=== PATIENT | male | born 1965 | race Hispanic/Latino ===

== ENCOUNTER 2018-08-19 07:45 | Outpatient (CLI) | payer BC ==
--- NOTE | 2018-08-19 09:42 | ULT ---
HEPATIC ULTRASOUND WITH DUPLEX EVALUATION: Date: 08/19/18 INDICATION: History of right upper quadrant pain and cirrhosis. TECHNIQUE: Rogel scale, color Doppler, and spectral Doppler images were obtained of the liver and spleen. FINDINGS: The liver has an irregular nodular contour and heterogeneous echotexture consistent with patient's hi story of cirrhosis. No focal hepatic lesion is identified. The right hepatic lobe measures 12.7 cm in length. The spleen is enlarged, measuring 15.6 cm in length. No free fluid is evident. Visualized aspects of the gallbladder were normal appearing. No sonographic Hernandez's sign is reported . Common bile duct measures 4.2 mm. There is appropriate hepatopetal flow seen within the portal vein, splenic vein, and hepatic artery. Appropriate flow is seen within the hepatic vein and splenic artery. Visualized aspects of the aorta and IVC are within normal limits. IMPRESSION: 1. Cirrhosis with findings of mild portal hypertension and splenomegaly. 2. Appropriate hepatopetal flow is seen within the hepatic vasculature. POS: H
== END 2018-08-19 07:46 | disposition home or self-care (01) ==
LOC: BICULT 07:45
PROVIDERS: ATTEND Internal Medicine
DX: K74.60 Unspecified cirrhosis of liver (principal); K75.4 Autoimmune hepatitis; R10.11 Right upper quadrant pain; K76.6 Portal hypertension; R16.1 Splenomegaly, not elsewhere classified
CPT/HCPCS: 76705